=== PATIENT | female | born 2000 ===

== ENCOUNTER 2024-10-23 00:22 | Emergency (ER) | payer OTHER ==
[~2024-10-23] VITALS: Ht 167.6 cm; Wt 86.2 kg
[2024-10-23] MEDS ORDERED: PENVK500 PO (01:04)
== END 2024-10-23 01:53 | disposition home or self-care (01) ==
LOC: ER 00:22
DX: O99.611 Diseases of the digestive system complicating pregnancy, first trimester (principal); K04.7 Periapical abscess without sinus; Z3A.08 8 weeks gestation of pregnancy; Z59.89 Other problems related to housing and economic circumstances
CPT/HCPCS: 99282; A9270

== ENCOUNTER → 2024-11-10 | Outpatient (CLI) | payer OTHER ==
[~2024-11-10] MED LIST: PENVK500 PO
[2024-11-10 13:25] LABS: Source, Urine Voided
[2024-11-10 15:14] LABS: Red Blood Cells, Urine 0-2 /hpf (0-2); White Blood Cells, Urine 0-2 /hpf (0-5)
[2024-11-10 15:17] LABS: U Amphetamine Screen Not Detected; U Barbituate Screen Not Detected; U Benzodiazapine Screen Not Detected; U Cocaine Screen Not Detected; U Methadone Screen Not Detected; U Methamphetamine Screen Not Detected; U Opiates Screen Not Detected; U Phencyclidine Screen Not Detected
[2024-11-10 15:18] LABS: U Buprenorphine Screen Not Detected; U Cannabinoids Screen DETECTED; U Oxycodone Screen Not Detected
[2024-11-13 13:54] LABS: 11-NOR-9-CARBOXY-THC,URN,QUANT >500 ng/mL
== END ==
LOC: LAB 11:10 → LAB SHORT 11:10
PROVIDERS: Advanced Practice Midwife
DX: Z34.81 Encounter for supervision of other normal pregnancy, first trimester (principal)
CPT/HCPCS: 81015; 87086; G0480

== ENCOUNTER → 2024-12-16 | Outpatient (CLI) | payer OTHER ==
[2024-12-16 15:04] LABS: Bacterial Vaginosis PCR Negative (NEGATIVE); Candida glabrata-krusei, PCR NOT DETECTED (NOT DETECT)
[2024-12-16 16:43] LABS: Candida Group, PCR DETECTED (NOT DETECT)
== END ==
LOC: LAB SHORT 13:00 → LAB 13:00
PROVIDERS: Advanced Practice Midwife
DX: N76.0 Acute vaginitis (principal); B96.89 Other specified bacterial agents as the cause of diseases classified elsewhere
CPT/HCPCS: 81515